=== PATIENT | female | born 1975 | race Caucasian/White ===

== ENCOUNTER 2018-05-28 16:40 | Inpatient (IN) | payer OTHER ==
[2018-05-28] MEDS: LACTATED RINGER'S 1,000 ML IV (17:26)
[2018-05-28] MEDS ORDERED: METHYLERGONOVINE 0.2 MG INJ IM ×2 (17:30→23:30)
[2018-05-28] MEDS ORDERED: CARBOPROST 250 MCG INJ IM ×2 (17:30→23:30)
[2018-05-28] MEDS ORDERED: OXYTOCIN 30 UNITS/LR 500 ML IV ×3 (17:30→23:30)
[2018-05-28] MEDS ORDERED: CEFAZOLIN 2 GM/50 ML (PMX) 50 ML IVPB (17:30)
[2018-05-28] MEDS ORDERED: MISOPROSTOL 200 MCG TAB PR ×2 (17:30→23:30)
[2018-05-28 18:58] LABS: ADD MAN DIFF? NO
[2018-05-28 19:03] LABS: BASOPHILS % 0.1 % (0.0-2.0); EOSINOPHILS # 0.1 10^3/ul (0.0-0.5); EOSINOPHILS % 1.4 % (0.0-7.0); HEMATOCRIT 39.2 % (37.0-47.0); HEMOGLOBIN 13.3 g/dl (12.0-16.0); LYMPHOCYTES # 1.4 10^3/ul (0.8-2.9); LYMPHOCYTES % 16.4 % (15.0-51.0); MEAN CORPUSCULAR HEMOGLOBIN 30.1 pg (29.0-33.0); MEAN CORPUSCULAR HGB CONC 33.9 g/dl (32.0-37.0); MEAN CORPUSCULAR VOLUME 88.7 fl (82.0-101.0); MEAN PLATELET VOLUME 11.9 fl (7.4-10.4); MONOCYTE # 0.6 10^3/ul (0.3-0.9); MONOCYTES % 7.3 % (0.0-11.0); NEUTROPHIL # 6.2 10^3/ul (1.6-7.5); NEUTROPHILS % 74.4 % (39.0-77.0); PLATELET COUNT 203 10^3/UL (140-415); RED BLOOD COUNT 4.42 10^6/ul (4.20-5.40); RED CELL DISTRIBUTION WIDTH 13.5 % (11.5-14.5)
[2018-05-28 19:03] LABS: WHITE BLOOD COUNT 8.4 10^3/ul (4.8-10.8)
[2018-05-28 19:21] LABS: INR 0.86; PROTIME 11.8 Sec (11.9-14.9); PT RATIO 0.9
[2018-05-28 19:24] LABS: ALANINE AMINOTRANSFERASE 29 IU/L (13-69); ALBUMIN 3.5 g/dl (3.3-4.9); ALBUMIN/GLOBULIN RATIO 1.16; ALKALINE PHOSPHATASE 169 IU/L (42-121); ANION GAP 11 (5-13); ASPARTATE AMINO TRANSFERASE 26 IU/L (15-46); BILIRUBIN,INDIRECT 0.2 mg/dl (0-1.1); BILIRUBIN,TOTAL 0.2 mg/dl (0.2-1.3); BLOOD UREA NITROGEN 16 mg/dl (7-20); CALCIUM 9.7 mg/dl (8.4-10.2); CARBON DIOXIDE 23 mmol/L (21-31); CHLORIDE 105 mmol/L (97-110); CREATININE 0.63 mg/dl (0.44-1.00); Estimated GFR > 60 mL/min (>60); GLUCOSE 82 mg/dl (70-220); POTASSIUM 4.1 mmol/L (3.5-5.1); SODIUM 139 mmol/L (135-144); TOTAL PROTEIN 6.5 g/dl (6.1-8.1)
[2018-05-28 19:54] LABS: HEPATITIS B SURFACE ANTIGEN NEGATIVE (NEGATIVE)
[2018-05-28] MEDS ORDERED: morphine SULFATE/PF (10 MG/10 ML) INJ (21:08)
[2018-05-28] MEDS ORDERED: OXYTOCIN 10 UNIT INJ ×2 (21:09→21:40)
[2018-05-28] MEDS ORDERED: ONDANSETRON 4 MG INJ (21:09)
[2018-05-28] MEDS ORDERED: NALOXONE (0.4 MG/ML) INJ IV (22:30)
[2018-05-28] MEDS ORDERED: DIPHENHYDRAMINE 50 MG INJ IV (22:30)
[2018-05-28] MEDS ORDERED: ONDANSETRON 4 MG INJ IV (22:30)
[2018-05-28] MEDS ORDERED: MAGNESIUM SULFATE 20 GM/500 ML 500 ML IV (22:54)
[2018-05-28] MEDS ORDERED: MAGNESIUM SULFATE 4 GM/100 ML 100 ML (22:54)
[2018-05-28] MEDS ORDERED: morphine SULFATE/PF (2 MG/2 ML) SYG IV (23:00)
[2018-05-28] MEDS: MAGNESIUM SULFATE 4 GM/100 ML 100 ML IVPB (23:21)
[2018-05-28] MEDS ORDERED: HYDROCODONE/APAP (5/325) TAB PO (23:30)
[2018-05-28] MEDS: CEFAZOLIN 1 GM/50 ML (PMX) 50 ML IVPB (23:30)
[2018-05-28] MEDS: MAGNESIUM SULFATE 20 GM/500 ML 500 ML IV (23:30)
[2018-05-28] MEDS ORDERED: METHYLERGONOVINE 0.2 MG TAB PO (23:30)
[2018-05-29] MEDS: OXYTOCIN 30 UNITS/LR 500 ML IV (00:54)
[2018-05-29] MEDS: CEFAZOLIN 1 GM/50 ML (PMX) 50 ML IVPB (06:49)
[2018-05-29 08:52] LABS: MAGNESIUM 5.2 mg/dl (1.7-2.5)
[2018-05-29] MEDS: SENNA/DOCUSATE NA (8.6MG/50MG) TAB PO ×2 (09:22→21:12)
[2018-05-29] MEDS: MAGNESIUM SULFATE 20 GM/500 ML 500 ML IV ×2 (09:26→19:42)
[2018-05-29] MEDS: LACTATED RINGER'S 1,000 ML IV (09:26)
[2018-05-29] MEDS: LANOLIN HPA 1 PKT TOP (09:26)
[2018-05-29] MEDS: IBUPROFEN 800 MG TAB PO ×3 (09:28→22:00)
[2018-05-29] MEDS: KETOROLAC 30 MG INJ IV ×2 (10:45→21:05)
[2018-05-29 13:14] LABS: MAGNESIUM 5.7 mg/dl (1.7-2.5)
[2018-05-29] MEDS: LABETALOL 200 MG TAB PO ×2 (13:30→21:16)
[2018-05-29 17:19] LABS: MAGNESIUM 5.9 mg/dl (1.7-2.5)
[2018-05-29 21:08] LABS: RAPID PLASMA REAGIN NONREACTIVE (NR)
[2018-05-30] MEDS: MAGNESIUM SULFATE 20 GM/500 ML 500 ML IV (05:30)
[2018-05-30] MEDS: MAGNESIUM HYDROXIDE 30ML CUP PO (05:56)
[2018-05-30] MEDS: IBUPROFEN 800 MG TAB PO ×3 (05:57→21:35)
[2018-05-30] MEDS: BISACODYL 10 MG SUPP PR (05:57)
[2018-05-30 07:26] LABS: ADD MAN DIFF? NO
[2018-05-30 07:30] LABS: WHITE BLOOD COUNT 11.3 10^3/ul (4.8-10.8)
[2018-05-30 07:30] LABS: BASOPHILS % 0.2 % (0.0-2.0); EOSINOPHILS % 0.4 % (0.0-7.0); HEMATOCRIT 31.4 % (37.0-47.0); HEMOGLOBIN 10.9 g/dl (12.0-16.0); LYMPHOCYTES # 1.1 10^3/ul (0.8-2.9); LYMPHOCYTES % 9.4 % (15.0-51.0); MEAN CORPUSCULAR HEMOGLOBIN 30.7 pg (29.0-33.0); MEAN CORPUSCULAR HGB CONC 34.7 g/dl (32.0-37.0); MEAN CORPUSCULAR VOLUME 88.5 fl (82.0-101.0); MEAN PLATELET VOLUME 10.4 fl (7.4-10.4); MONOCYTE # 0.7 10^3/ul (0.3-0.9); NEUTROPHIL # 9.4 10^3/ul (1.6-7.5); NEUTROPHILS % 83.6 % (39.0-77.0); PLATELET COUNT 183 10^3/UL (140-415); RED BLOOD COUNT 3.55 10^6/ul (4.20-5.40); RED CELL DISTRIBUTION WIDTH 13.6 % (11.5-14.5)
[2018-05-30] MEDS: OXYCODONE/ACETAMINOPHEN (5/325) TAB PO ×2 (08:03→12:16)
[2018-05-30] MEDS: SENNA/DOCUSATE NA (8.6MG/50MG) TAB PO ×2 (08:48→21:35)
[2018-05-30] MEDS: LABETALOL 200 MG TAB PO ×2 (08:49→21:36)
[2018-05-31] MEDS: HYDROCODONE/APAP (5/325) TAB PO (00:24)
[2018-05-31] MEDS: IBUPROFEN 800 MG TAB PO (05:44)
[2018-05-31 07:17] LABS: ADD MAN DIFF? NO
[2018-05-31 07:21] LABS: WHITE BLOOD COUNT 9.4 10^3/ul (4.8-10.8)
[2018-05-31 07:21] LABS: BASOPHILS % 0.2 % (0.0-2.0); EOSINOPHILS # 0.2 10^3/ul (0.0-0.5); EOSINOPHILS % 2.6 % (0.0-7.0); HEMATOCRIT 31.4 % (37.0-47.0); HEMOGLOBIN 10.4 g/dl (12.0-16.0); LYMPHOCYTES # 1.7 10^3/ul (0.8-2.9); LYMPHOCYTES % 18.4 % (15.0-51.0); MEAN CORPUSCULAR HEMOGLOBIN 30.1 pg (29.0-33.0); MEAN CORPUSCULAR HGB CONC 33.1 g/dl (32.0-37.0); MONOCYTE # 0.8 10^3/ul (0.3-0.9); NEUTROPHIL # 6.6 10^3/ul (1.6-7.5); NEUTROPHILS % 70.3 % (39.0-77.0); PLATELET COUNT 181 10^3/UL (140-415); RED BLOOD COUNT 3.45 10^6/ul (4.20-5.40); RED CELL DISTRIBUTION WIDTH 13.7 % (11.5-14.5)
[2018-05-31] MEDS: LABETALOL 200 MG TAB PO (09:24)
[2018-05-31] MEDS: SENNA/DOCUSATE NA (8.6MG/50MG) TAB PO (09:24)
== END 2018-05-31 13:49 | disposition home or self-care (01) | DRG 785 ==
LOC: PP1 05-29 01:47 → L-D 16:40
PROVIDERS: Obstetrics & Gynecology
PROC: 10D00Z1 Extraction of Products of Conception, Low, Open Approach (ICD-10-PCS; principal; 2018-05-28 20:00)
PROC: 0U570ZZ Destruction of Bilateral Fallopian Tubes, Open Approach (ICD-10-PCS; 2018-05-28 20:00)
PROC: 0DNW0ZZ Release Peritoneum, Open Approach (ICD-10-PCS; 2018-05-28 20:00)
DX: O13.4 Gestational [pregnancy-induced] hypertension without significant proteinuria, complicating childbirth (principal); O34.211 Maternal care for low transverse scar from previous cesarean delivery; O99.214 Obesity complicating childbirth; O99.89 Other specified diseases and conditions complicating pregnancy, childbirth and the puerperium; E66.01 Morbid (severe) obesity due to excess calories; N73.6 Female pelvic peritoneal adhesions (postinfective); Z37.0 Single live birth; Z3A.37 37 weeks gestation of pregnancy; Z30.2 Encounter for sterilization
CPT/HCPCS: 80053; 83735; 85025; 85610; 85730; 86592; 86850; 86900; 86901; 87340; 88302; 99464